=== PATIENT | male | born 1945 | race Caucasian/White ===

== ENCOUNTER 2021-05-08 13:35 | Emergency (ER) | payer MEDICARE, SELFPAY ==
--- NOTE | 2021-05-08 13:56 | PC.NURSE ---
Calling [facility] at this time. Caroline has contacted filler sifter machine at this time
--- NOTE | 2021-05-08 13:58 | HMH.EDGENADL ---
ED Disposition Clinical Impression: Cardiac arrest Disposition: Condition on Discharge: Critical Referrals: Provider,Referral, [Primary Care Provider] - Time of Disposition: 15:40 - Critical Care Critical Care Time: Yes Attestation: On 05/08/21, the high probability of a clinically significant, sudden or life threatening deterioration of the following system(s) required my full and direct attention, intervention and personal management. The time I documented below is in addition to time spent performing reported procedures but includes the following listed in this critical care notation. Vital system(s) involved:: Circulatory Failure My critical care processes included: Assessment & monitoring of V/S Probable Cause of : Cardiac arrest Medical Decision Making - Luis Inquiry Pt receiving controlled substance: No Vital Signs: 05/08/21 15:38 Temperature 0 F L Pulse Rate 0 L Respiratory Rate 0 L Blood Pressure 0/0 L Oxygen Flow Rate (LPM) 0 Medical Decision Narrative: Mr. Waters is a 75 yo male w/ PMH for CVA who presents to the ED as CODE Arrest following unwitnessed event. Patient coded 30 min prior to arrival. Initial rhythm asystole followed by v fib arrest. Patient given x1 round of epinephrine in route. Physical exam patient has no signs of head trauma. No fistula formations. Bedside US shows no pneumothorax, no cardiac effusion. Aorta normal appearing. Sugar normal on arrival. Temperature normal. Patient is coded for x3 rounds of CPR on arrival and given x2 epinephrine with nor relief. Given prolonged down time unlikely to have good prognosis, unwitnessed likely significant anoxic brain injruy. patient is pronouned at 15:39. General Adult HPI - General Stated complaint: cardiac arrest Time Seen by Provider: 05/08/21 15:30 Mode of Arrival: EMS Source of Information: EMS Limitations: cardiac arrest - History of Present Illness HPI narrative: Mr. Waters is a 75 yo male w/ PMH for CVA who presents to the ED as cardiac arrest. History provided by EMS. EMS reports they were called to the scene for stroke alert. Patient had unwitnessed arrest. EMS reports patients found him unconcious. Patient had initial rhythm of asystole and then converted to vfib . Patient was given x1 round of epinephrine and coded for 30 minutes prior to arrival. Patient has no obvious signs of head trauma. No fistulas on body. Abdomen is soft and non distended. Limited hx givne current mentation. complaint: CODE [facility] History - Hepatitis A Screen Attestation statement:: This patient has been screened for Hepatitis A risk factors. I have reviewed the patient's past medical history: No (CODE ARREST ) ROS Obtained: Yes unobtainable due to mental status Physical Exam - General General appearance: obtunded - Head Head exam: atraumatic, normocephalic, normal inspection - Eye Eye exam: Present: normal appearance - Neck Neck exam: Absent: meningismus, lymphadenopathy - Chest Chest inspection: Present: normal inspection. Absent: tenderness - Respiratory Respiratory exam: Present: other. Absent: respiratory distress - Cardiovascular Cardiovascular exam: Present: other. Absent: JVD - Abdominal Exam Abdominal exam: Present: soft, normal bowel sounds. Absent: distention, tenderness, guarding - Extremities Exam Extremities exam: Absent: calf tenderness - Back Exam Back exam: Absent: tenderness - Neurological Exam Neurological exam: Present: other - Skin Skin exam: Present: warm
--- NOTE | 2021-05-08 14:12 | PC.NURSE ---
Spoke with Suzette at [facility] who advised pt was a possible candidate for tissue donation. She asked that once the family has spent time with the pt, that I give her a call back and let the know that a patient critical care cns would like to speak with her.
--- NOTE | 2021-05-08 14:18 | PC.NURSE ---
PT arrived @ 1334 in cardiac arrest, per EMS pt was unwitnessed arrest down for unknown amount of time. PT was given 1mg of epi enroute and show v-fib on the monitor and was shocked on time per EMS. PT arrived to ER, pulse check with no pulse and monitor showed asystole. 1335- 1 mg of epi given/FSBS 93 1336-asystole on monitor, no pulse 1338-1 mg of epi given 1339- asystole, no pulse 1339-TOD.
--- NOTE | 2021-05-08 14:26 | PC.NURSE ---
Leonardo at bedside, speaking with family
--- NOTE | 2021-05-08 14:58 | PC.NURSE ---
Spoke with Suzette from [facility], we had spoke with family and they mentioned organ donation, Suzette advised at this time it was fine to let them know thats what it was in regards too. Klaus went and spoke with who declined tissue donation at this time. Notified Suzette of decision per family. Agreeable at this time. Advised it was ok to release body to home.
[2021-05-08 15:38] VITALS: BP 0/0; PULSE 0; RESP 0; TEMP -17.7; TEMP 0; O2SAT 0
== END 2021-05-08 15:39 | disposition expired ==
PROVIDERS: Emergency Provider Student in an Organized Health Care Education/Training Program
DX: I46.9 Cardiac arrest, cause unspecified (principal)
CPT/HCPCS: 96374; 96375; 99282